=== PATIENT | female | born 1985 | race Caucasian/White ===

== ENCOUNTER 2017-12-25 13:23 | Inpatient (IN) | payer MEDICAID ==
[~2017-12-25] VITALS: Ht 170.2 cm; Wt 90.9 kg
[~2017-12-25 13:23] MED LIST: AMOX1TAB64 PO; BENZ-17 PO; CALC300T5 PO; IBUP-1222 PO; PREN1TAB27 PO
[2017-12-25 13:35] VITALS: BP 120/57
[2017-12-25] MEDS ORDERED: OXYTOCIN 30U/ 0.9% NaCL 500ML 500 ML IV ONE (15:48)
[2017-12-25] MEDS ORDERED: D5%-LACTATED RINGERS 1,000 ML IV SCH (15:48)
[2017-12-25] MEDS: LACTATED RINGERS 1,000 ML IV SCH ×2 (15:55→15:56)
[2017-12-25] MEDS ORDERED: FENTANYL PF 100 MCG/2ML IV PRN (16:00)
[2017-12-25] MEDS ORDERED: TERBUTALINE 1 MG/ML, 1ML SQ PRN (16:00)
[2017-12-25] MEDS ORDERED: FENTANYL PF 100 MCG/2ML IVPush PRN (16:00)
[2017-12-25 16:05] LABS: BASOPHILS # (AUTO) 0.02 x10^3/uL (0-0.1); BASOPHILS % (AUTO) 0 % (0-1); EOSINOPHILS # (AUTO) 0.03 x10^3/uL (0-0.4); EOSINOPHILS % (AUTO) 0 % (1-7); LYMPHOCYTES # (AUTO) 1.84 x10^3/uL (1-3.4); LYMPHOCYTES % (AUTO) 20 % (22-44); MD NO; MEAN CORPUSCULAR HEMOGLOBIN 29.2 pg (27.0-34.8); MEAN CORPUSCULAR HGB CONC 34.1 g/dL (32.4-35.8); MEAN CORPUSCULAR VOLUME 85.7 fL (80-100); MEAN PLATELET VOLUME 8.5 fL (7.4-10.4); MONOCYTES # (AUTO) 0.53 x10^3/uL (0.2-0.8); MONOCYTES % (AUTO) 6 % (2-9); NEUTROPHILS # (AUTO) 6.83 x10^3/uL (1.8-6.8); NEUTROPHILS % (AUTO) 74 % (42-75); PLATELET COUNT 259 x10^3/uL (130-400); RED BLOOD COUNT 3.96 x10^6/uL (3.82-5.3); RED CELL DISTRIBUTION WIDTH 14.5 % (9.6-15.2)
[2017-12-25] MEDS ORDERED: NEWBORN KIT ONE (16:23)
[2017-12-25] MEDS ORDERED: OXYTOCIN 30U/ 0.9% NaCL 500ML 500 ML ONE (16:23)
[2017-12-25] MEDS ORDERED: OXYTOCIN 30U/ 0.9% NaCL 500ML 500 ML IV PRN (18:55)
[2017-12-25] MEDS ORDERED: FENTANYL/BUPIV./NS/PF 250 ML EPIDCONT ONE (19:03)
[2017-12-25 19:04] VITALS: BP 125/59
[2017-12-25] MEDS ORDERED: LIDOCAINE/PF 1.5%-EPI 1:200K, 30ML ONE (19:05)
[2017-12-25] MEDS ORDERED: BUPIVACAINE 0.25% ONE (19:05)
[2017-12-25] MEDS ORDERED: LIDOCAINE-MPF 1%, 5ML ONE (20:13)
[2017-12-25] MEDS ORDERED: MISOPROSTOL 200 MCG TABLET ONE (20:14)
[2017-12-25] MEDS: OXYTOCIN 30U/ 0.9% NaCL 500ML 500 ML IV SCH (23:33)
[2017-12-25] MEDS ORDERED: FENTANYL/BUPIV./NS/PF 250 ML EPIDCONT SCH (23:57)
[2017-12-25] MEDS ORDERED: LACTATED RINGERS 1,000 ML IV SCH (23:57)
[2017-12-26] MEDS ORDERED: NALOXONE 0.4 MG/ML, 1ML IVPush PRN
[2017-12-26] MEDS ORDERED: OXYcodone IR 5MG TABLET PO PRN
[2017-12-26] MEDS ORDERED: LACTATED RINGERS 1,000 ML IVBOLUS PRN
[2017-12-26] MEDS ORDERED: ONDANSETRON 2MG/ML, 2ML IVPush PRN
[2017-12-26] MEDS ORDERED: ONDANSETRON 2MG/ML, 2ML IV PRN
[2017-12-26] MEDS ORDERED: DOCUSATE 100 MG CAPSULE PO PRN
[2017-12-26] MEDS ORDERED: MISOPROSTOL 200 MCG TABLET PR PRN
[2017-12-26] MEDS ORDERED: EPHEDRINE 50 MG/ML, 1ML IVPush PRN
[2017-12-26] MEDS ORDERED: ACETAMINOPHEN 325 MG TABLET PO PRN
[2017-12-26] MEDS ORDERED: DIPHENHYDRAMINE 50 MG/ML, 1ML IVPush PRN
[2017-12-26] MEDS ORDERED: OXYcodone/APAP 5/325MG TABLET PO PRN
[2017-12-26 01:25] VITALS: BP 108/69
[2017-12-26 04:45] VITALS: BP 108/66
[2017-12-26] MEDS: IBUPROFEN 600 MG TABLET PO PRN ×2 (05:02→11:44)
[2017-12-26 08:20] VITALS: BP 119/76
[2017-12-26 08:53] LABS: BASOPHILS # (AUTO) 0.08 x10^3/uL (0-0.1); BASOPHILS % (AUTO) 1 % (0-1); EOSINOPHILS # (AUTO) 0.05 x10^3/uL (0-0.4); EOSINOPHILS % (AUTO) 0 % (1-7); LYMPHOCYTES # (AUTO) 1.81 x10^3/uL (1-3.4); LYMPHOCYTES % (AUTO) 13 % (22-44); MD NO; MEAN CORPUSCULAR HEMOGLOBIN 28.3 pg (27.0-34.8); MEAN CORPUSCULAR HGB CONC 33.3 g/dL (32.4-35.8); MEAN CORPUSCULAR VOLUME 85.1 fL (80-100); MEAN PLATELET VOLUME 8.4 fL (7.4-10.4); MONOCYTES # (AUTO) 0.86 x10^3/uL (0.2-0.8); MONOCYTES % (AUTO) 6 % (2-9); NEUTROPHILS # (AUTO) 10.98 x10^3/uL (1.8-6.8); NEUTROPHILS % (AUTO) 80 % (42-75); PLATELET COUNT 286 x10^3/uL (130-400); RED BLOOD COUNT 4.26 x10^6/uL (3.82-5.3); RED CELL DISTRIBUTION WIDTH 14.7 % (9.6-15.2)
[2017-12-26] MEDS ORDERED: PRENATAL VIT/IRON/FA 1 EACH TABLET PO SCH (09:00)
[2017-12-26] MEDS: OXYTOCIN 30U/ 0.9% NaCL 500ML 500 ML IV SCH (09:33)
[2017-12-26 12:00] VITALS: BP 131/87
== END 2017-12-26 13:15 | disposition home or self-care (01) | DRG 775 ==
LOC: LDOP 13:23 → LDIP 15:54 → 2NW 12-26 01:23
PROVIDERS: ADMIT Obstetrics & Gynecology; ATTEND Obstetrics & Gynecology
PROC: 10E0XZZ Delivery of Products of Conception, External Approach (ICD-10-PCS; principal; 2017-12-25)
PROC: 3E033VJ Introduction of Other Hormone into Peripheral Vein, Percutaneous Approach (ICD-10-PCS; 2017-12-25)
PROC: 0HQ9XZZ Repair Perineum Skin, External Approach (ICD-10-PCS; 2017-12-25)
PROC: 3E0R3BZ Introduction of Anesthetic Agent into Spinal Canal, Percutaneous Approach (ICD-10-PCS; 2017-12-25)
PROC: 00HU33Z Insertion of Infusion Device into Spinal Canal, Percutaneous Approach (ICD-10-PCS; 2017-12-25)
DX: O70.0 First degree perineal laceration during delivery (principal); O69.81X0 Labor and delivery complicated by cord around neck, without compression, not applicable or unspecified; Z37.0 Single live birth; Z3A.37 37 weeks gestation of pregnancy
CPT/HCPCS: 36415; 85025; 86850; 86900; J3490; J2590; J3010; J7120

== ENCOUNTER 2019-02-25 00:44 | Outpatient (CLI) | payer BC, MEDICAID ==
[~2019-02-25] VITALS: Ht 170.2 cm; Wt 92.3 kg
[2019-02-25 01:29] LABS: MICROSCOPIC AUTO
[2019-04-21] MEDS ORDERED: IBUP-1222 PO (11:29)
== END 2019-02-25 03:04 | disposition home or self-care (01) ==
LOC: LDOP 00:44
PROVIDERS: ATTEND Obstetrics & Gynecology
DX: O62.9 Abnormality of forces of labor, unspecified (principal); O09.513 Supervision of elderly primigravida, third trimester; Z3A.31 31 weeks gestation of pregnancy
CPT/HCPCS: 59025; 81001; 87086; 99211; G0463

== ENCOUNTER 2019-03-08 16:57 | Outpatient (CLI) | payer BC, MEDICAID ==
[~2019-03-08] VITALS: Ht 170.2 cm; Wt 92.3 kg
[2019-03-08 17:04] VITALS: BP 117/64
== END 2019-03-08 19:23 | disposition home or self-care (01) ==
LOC: LDOP 16:57
PROVIDERS: ATTEND Obstetrics & Gynecology
DX: O09.523 Supervision of elderly multigravida, third trimester (principal); O36.8130 Decreased fetal movements, third trimester, not applicable or unspecified; Z3A.34 34 weeks gestation of pregnancy
CPT/HCPCS: 59025; 76815; 99211; G0463

== ENCOUNTER 2019-03-14 22:11 | Outpatient (CLI) | payer BC, MEDICAID ==
[~2019-03-14] VITALS: Ht 170.2 cm; Wt 92.7 kg
== END 2019-03-15 00:04 | disposition home or self-care (01) ==
LOC: LDOP 22:11
PROVIDERS: ATTEND Obstetrics & Gynecology
DX: O26.893 Other specified pregnancy related conditions, third trimester (principal); Z3A.40 40 weeks gestation of pregnancy
CPT/HCPCS: 59025; 81003; 87086; 99211; J3105; G0463

== ENCOUNTER 2019-03-16 15:50 | Outpatient (CLI) | payer BC, MEDICAID ==
[~2019-03-16] VITALS: Ht 162.6 cm; Wt 92.7 kg
[2019-03-16 16:38] VITALS: BP 111/64
== END 2019-03-16 19:00 | disposition home or self-care (01) ==
LOC: LDOP 15:50
PROVIDERS: ATTEND Obstetrics & Gynecology
DX: O26.893 Other specified pregnancy related conditions, third trimester (principal); R10.9 Unspecified abdominal pain; Z3A.34 34 weeks gestation of pregnancy
CPT/HCPCS: 59025; 81003; 96372; 99211; J3105; G0463

== ENCOUNTER 2019-07-23 09:07 | Outpatient (CLI) | payer BC, MEDICAID ==
[2019-07-23] MEDS ORDERED: TERB250T14 PO (09:31)
[2019-07-23 09:54] LABS: BASOPHILS # (AUTO) 0.03 x10^3/uL (0-0.1); BASOPHILS % (AUTO) 0 % (0-1); EOSINOPHILS # (AUTO) 0.21 x10^3/uL (0-0.4); EOSINOPHILS % (AUTO) 3 % (1-7); LYMPHOCYTES # (AUTO) 1.54 x10^3/uL (1-3.4); LYMPHOCYTES % (AUTO) 25 % (22-44); MD NO; MEAN CORPUSCULAR HEMOGLOBIN 29.1 pg (27.0-34.8); MEAN CORPUSCULAR HGB CONC 32.6 g/dL (32.4-35.8); MEAN CORPUSCULAR VOLUME 89.4 fL (80-100); MEAN PLATELET VOLUME 8.2 fL (7.4-10.4); MICROSCOPIC NOT IND; MONOCYTES # (AUTO) 0.34 x10^3/uL (0.2-0.8); MONOCYTES % (AUTO) 6 % (2-9); NEUTROPHILS # (AUTO) 3.97 x10^3/uL (1.8-6.8); NEUTROPHILS % (AUTO) 65 % (42-75); PLATELET COUNT 337 x10^3/uL (130-400)
[2019-07-23 09:57] LABS: CULTURE INDICATED? NO
[2019-07-23 10:03] LABS: ALANINE AMINOTRANSFERASE 43 U/L (12-78); ALBUMIN 3.8 g/dL (3.4-5.0); ANION GAP 7 mmol/L (5-15); CALCIUM 8.7 mg/dL (8.5-10.1); CHLORIDE 108 mmol/L (98-107); CREATININE 0.84 mg/dL (0.55-1.02)
[2019-07-23 10:07] LABS: ALKALINE PHOSPHATASE 100 U/L (45-117); BILIRUBIN,TOTAL 0.4 mg/dL (0.2-1.0); TOTAL PROTEIN 7.4 g/dL (6.4-8.2)
== END 2019-07-23 23:59 | disposition home or self-care (01) ==
LOC: STAR 09:07
PROVIDERS: ATTEND Obstetrics & Gynecology
DX: Z31.84 Encounter for fertility preservation procedure (principal)
CPT/HCPCS: 36415; 80053; 81003; 84702; 85025

== ENCOUNTER 2019-08-03 10:17 | Day surgery (SDC) | payer BC, MEDICAID ==
[~2019-08-03] VITALS: Ht 170.2 cm; Wt 85.9 kg
[~2019-08-03 10:17] MED LIST changes: +TERB250T14 PO
[2019-08-03] MEDS ORDERED: LACTATED RINGERS 1,000 ML IV SCH (10:41)
[2019-08-03] MEDS ORDERED: MIDAZOLAM 1 MG/ML, 2ML ONE (10:42)
[2019-08-03] MEDS ORDERED: FENTANYL PF 250 MCG/5ML ONE (10:43)
[2019-08-03 10:45] VITALS: BP 114/74
[2019-08-03 11:08] LABS: HCG UR SG 1.023 (1.003-1.030)
[2019-08-03] MEDS ORDERED: BUPIVACAINE/PF-EPI 0.25% 1:200K ONE (11:22)
[2019-08-03] MEDS ORDERED: SILVER NITRATE STICK TP ONE (11:22)
[2019-08-03] MEDS ORDERED: APREPITANT 40 MG CAPSULE ONE ×2 (11:34)
[2019-08-03] MEDS ORDERED: PROPOFOL 10 MG/ML, 20ML ONE (12:25)
[2019-08-03] MEDS ORDERED: KETOROLAC 30 MG/1 ML ONE (12:25)
[2019-08-03] MEDS ORDERED: ONDANSETRON 2MG/ML, 2ML ONE (12:25)
[2019-08-03] MEDS ORDERED: DEXAMETHASONE 4 MG/ML, 1ML ONE (12:25)
[2019-08-03] MEDS ORDERED: LIDOCAINE-MPF 2% ,5ML ONE (12:25)
[2019-08-03] MEDS ORDERED: CEFAZOLIN 1,000 MG ONE (12:25)
[2019-08-03] MEDS ORDERED: ROCURONIUM 10MG/ML,5ML ONE (12:25)
[2019-08-03] MEDS ORDERED: MEPERIDINE/PF 25MG/ML,1ML IVPush PRN (13:00)
[2019-08-03] MEDS ORDERED: hydrALAzine 20 MG/ML, 1ML IV PRN (13:00)
[2019-08-03] MEDS ORDERED: FENTANYL PF 100 MCG/2ML IV PRN (13:00)
[2019-08-03] MEDS ORDERED: OXYcodone 5 MG/5 ML ORAL.SOL UDC PO PRN (13:00)
[2019-08-03] MEDS ORDERED: HYDROmorphone 2 MG/ML, 1ML IVPush PRN (13:00)
[2019-08-03] MEDS ORDERED: ACETAMINOPHEN 325 MG TABLET PO PRN (13:00)
[2019-08-03] MEDS ORDERED: PROMETHAZINE 25 MG/ML, 1ML IV PRN (13:00)
[2019-08-03] MEDS ORDERED: PROMETHAZINE 25 MG/ML, 1ML ONE (13:08)
[2019-08-03] MEDS ORDERED: EPHEDRINE 50 MG/ML, 1ML ONE (13:23)
[2019-08-03] MEDS ORDERED: EPHEDRINE 50 MG/ML, 1ML IVPush ONE (13:30)
[2019-08-03] MEDS ORDERED: EPHEDRINE 50 MG/ML, 1ML IM ONE (13:30)
[2019-08-03] MEDS ORDERED: LACTATED RINGERS 1,000 ML IVBOLUS ONE (14:00)
[2019-08-03] MEDS ORDERED: OXYcodone 5 MG/5 ML ORAL.SOL UDC ONE (14:59)
== END 2019-08-03 16:40 | disposition home or self-care (01) ==
LOC: OR 10:17
PROVIDERS: ATTEND Obstetrics & Gynecology
DX: Z30.2 Encounter for sterilization (principal); F15.90 Other stimulant use, unspecified, uncomplicated; Z87.891 Personal history of nicotine dependence; Z72.89 Other problems related to lifestyle
CPT/HCPCS: 36415; 58670; 81025; 86850; 86900; 88302; J0690; J1100; J1885; J2250; J2405; J2550; J2704; J3010; J7120; J8501